=== PATIENT | male | born 1950 | race Caucasian/White ===

== ENCOUNTER → 2023-06-10 10:16 | Outpatient (REF) | payer MEDICARE, OTHER, SELFPAY ==
[2023-06-10 11:31] LABS: Urine Albumin Negative (Neg - Trace); Urine Bilirubin 1+ (Negative); Urine Character Clear (Clear); Urine Color Yellow; Urine Glucose Negative (Negative); Urine Ketone Trace (Negative); Urine Leukocyte Trace (Negative); Urine Nitrite Negative (Negative); Urine Occult Blood Negative (Negative); Urine Specific Gravity 1.015 (<1.030); Urine Urobilinogen 1+ (Neg - 1+)
[2023-06-10 11:49] LABS: Urine Red Blood Cell 0-2 /HPF (0-2)
[2023-06-10 11:50] LABS: Urine Mucus Few
[2023-06-10 11:51] LABS: Urine Squamous Cell 0-2 /LPF (Few)
[2023-06-10 12:33] LABS: ALT (SGPT) 22 U/L (0-50); AST (SGOT) 32 U/L (17-59); Albumin 4.4 g/dl (3.5-5.0); Alkaline Phosphatase 146 U/L (38-126); Blood Urea Nitrogen 24 mg/dl (9-20); Calcium 9.7 mg/dl (8.4-10.2); Carbon Dioxide 30 mmol/L (22-30); Chloride 100 mmol/L (98-107); Glucose 108 mg/dl (70-99); HDL Cholesterol 31 mg/dl; LDL Cholesterol, Calculated 93 mg/dl; Potassium 4.4 mmol/L (3.5-5.1); Sodium 140 mmol/L (135-145); Total Bilirubin 1.7 mg/dl (0.2-1.3); Total Cholesterol 151 mg/dl (50-199); Total Protein 7.6 g/dl (6.3-8.2); Triglyceride 138 mg/dl (10-149); Very Low Density Lipoprotein 27 mg/dl (0-30); eGFR > 60.00
[2023-06-10 12:53] LABS: % Basophils 0.6 % (0-2); % Eosinophils 6.8 % (0-6); % Immature Granulocytes 0.4 % (0-0.5); % Lymphocytes 18.7 % (20.5-51.1); % Monocytes 13.4 % (1.7-9.3); % Neutrophils 60.1 % (42.2-75.2); Absolute Eosinophils 0.5 10^3/uL (0-0.7); Absolute Lymphocytes 1.3 10^3/uL (1.2-3.4); Absolute Monocytes 0.9 10^3/uL (0.1-0.6); Absolute Neutrophils 4.1 10^3/uL (1.4-6.5); Hematocrit 40.3 % (39.0-52.0); Hemoglobin 13.7 g/dL (13.0-18.0); Mean Corpuscular Volume 88.4 fL (80.0-94.0); Mean Platelet Volume 9.6 fL (7.4-10.4); Nucleated Red Blood Cells % 0 % (-); Platelet Count 262 10^3/uL (130-400); Red Blood Cell Count 4.56 10^6/uL (4.70-6.10); White Blood Cell Count 6.8 10^3/uL (4.8-10.8)
[2023-06-10 13:16] LABS: Glycohemoglobin (HgbA1c) 6.3 % (4.0-5.6)
[2023-06-11 21:10] LABS: PSA Total 2.3 ng/mL (0.0-4.0)
== END ==
LOC: REG 10:16
PROVIDERS: ATTENDING PHYSICIAN Family Medicine
DX: F41.1 Generalized anxiety disorder (principal); I10 Essential (primary) hypertension; E78.2 Mixed hyperlipidemia; M1A.09X0 Idiopathic chronic gout, multiple sites, without tophus (tophi); R35.1 Nocturia; R73.03 Prediabetes; N40.1 Benign prostatic hyperplasia with lower urinary tract symptoms
CPT/HCPCS: 36415; 80053; 80061; 81003; 81015; 83036; 84153; 84154; 84443; 84550; 85025

== ENCOUNTER → 2023-12-20 09:32 | Outpatient (REF) | payer MEDICARE, OTHER, SELFPAY ==
[2023-12-20 11:28] LABS: % Basophils 0.5 % (0-2); % Eosinophils 3.8 % (0-6); % Immature Granulocytes 0.2 % (0-0.5); % Lymphocytes 16.2 % (20.5-51.1); % Monocytes 11.2 % (1.7-9.3); % Neutrophils 68.1 % (42.2-75.2); Absolute Eosinophils 0.2 10^3/uL (0-0.7); Absolute Monocytes 0.7 10^3/uL (0.1-0.6); Absolute Neutrophils 4.1 10^3/uL (1.4-6.5); Hematocrit 37.7 % (39.0-52.0); Mean Corp Hgb Conc. 34.5 g/dL (33.0-37.0); Mean Corpuscular Hgb 30.7 pg (27.0-31.0); Mean Corpuscular Volume 88.9 fL (80.0-94.0); Mean Platelet Volume 9.6 fL (7.4-10.4); Nucleated Red Blood Cells % 0 % (-); Platelet Count 235 10^3/uL (130-400); Red Blood Cell Count 4.24 10^6/uL (4.70-6.10); Red Cell Dist. Width 14.2 % (11.5-14.5)
[2023-12-20 11:47] LABS: ALT (SGPT) 28 U/L (0-50); AST (SGOT) 35 U/L (17-59); Albumin 4.4 g/dl (3.5-5.0); Alkaline Phosphatase 119 U/L (38-126); Blood Urea Nitrogen 17 mg/dl (9-20); Calcium 9.4 mg/dl (8.4-10.2); Carbon Dioxide 30 mmol/L (22-30); Chloride 99 mmol/L (98-107); Glucose 125 mg/dl (70-99); HDL Cholesterol 35 mg/dl; LDL Cholesterol, Calculated 93 mg/dl; Potassium 4.1 mmol/L (3.5-5.1); Sodium 142 mmol/L (135-145); Total Bilirubin 1.8 mg/dl (0.2-1.3); Total Cholesterol 151 mg/dl (50-199); Total Protein 7.2 g/dl (6.3-8.2); Triglyceride 118 mg/dl (10-149); Very Low Density Lipoprotein 23 mg/dl (0-30); eGFR > 60.00
[2023-12-20 11:57] LABS: Glycohemoglobin (HgbA1c) 5.8 % (4.0-5.6)
[2023-12-20 12:07] LABS: Uric Acid 6.5 mg/dl (3.5-8.5)
== END ==
LOC: REG 09:32
PROVIDERS: ATTENDING PHYSICIAN Family Medicine
DX: E78.2 Mixed hyperlipidemia (principal); Z85.72 Personal history of non-Hodgkin lymphomas; M1A.09X0 Idiopathic chronic gout, multiple sites, without tophus (tophi); R73.03 Prediabetes
CPT/HCPCS: 36415; 80053; 80061; 83036; 84550; 85025

== ENCOUNTER → 2024-01-17 10:49 | Outpatient (REF) | payer MEDICARE, OTHER, SELFPAY | LOC: RST 10:49 | PROVIDERS: ATTENDING PHYSICIAN Otolaryngology; FAMILY PHYSICIAN Family Medicine | DX: K21.9 Gastro-esophageal reflux disease without esophagitis (principal) | CPT/HCPCS: 74221 ==

== ENCOUNTER → 2024-07-17 08:11 | Outpatient (REF) | payer MEDICARE, OTHER, SELFPAY ==
[2024-07-17 09:12] LABS: % Basophils 0.7 % (0-2); % Eosinophils 2.3 % (0-6); % Immature Granulocytes 0.2 % (0-0.5); % Lymphocytes 21.5 % (20.5-51.1); % Neutrophils 63.3 % (42.2-75.2); Absolute Eosinophils 0.1 10^3/uL (0-0.7); Absolute Lymphocytes 1.2 10^3/uL (1.2-3.4); Absolute Monocytes 0.7 10^3/uL (0.1-0.6); Absolute Neutrophils 3.6 10^3/uL (1.4-6.5); Hematocrit 38.8 % (39.0-52.0); Hemoglobin 13.7 g/dL (13.0-18.0); Mean Corp Hgb Conc. 35.3 g/dL (33.0-37.0); Mean Corpuscular Hgb 33.3 pg (27.0-31.0); Mean Corpuscular Volume 94.2 fL (80.0-94.0); Mean Platelet Volume 9.9 fL (7.4-10.4); Nucleated Red Blood Cells % 0 % (-); Platelet Count 210 10^3/uL (130-400); Red Blood Cell Count 4.12 10^6/uL (4.70-6.10); Red Cell Dist. Width 14.8 % (11.5-14.5); White Blood Cell Count 5.7 10^3/uL (4.8-10.8)
[2024-07-17 09:18] LABS: Urine Albumin 1+ (Neg - Trace); Urine Bilirubin Negative (Negative); Urine Character Clear (Clear); Urine Color Yellow; Urine Glucose Negative (Negative); Urine Ketone Negative (Negative); Urine Leukocyte 1+ (Negative); Urine Nitrite Negative (Negative); Urine Occult Blood Negative (Negative); Urine Specific Gravity 1.015 (<1.030); Urine Urobilinogen Negative (Neg - 1+)
[2024-07-17 09:37] LABS: Glycohemoglobin (HgbA1c) 5.8 % (4.0-5.6)
[2024-07-17 09:38] LABS: Urine Squamous Cell 0-2 /LPF (Few)
[2024-07-17 09:40] LABS: Urine Amorphous Seen
[2024-07-17 09:41] LABS: Urine Red Blood Cell 0-2 /HPF (0-2)
[2024-07-17 09:43] LABS: Urine Mucus Moderate
[2024-07-17 09:44] LABS: ALT (SGPT) 25 U/L (0-50); AST (SGOT) 32 U/L (17-59); Albumin 4.3 g/dl (3.5-5.0); Alkaline Phosphatase 100 U/L (38-126); Blood Urea Nitrogen 20 mg/dl (9-20); Calcium 9.9 mg/dl (8.4-10.2); Carbon Dioxide 30 mmol/L (22-30); Chloride 102 mmol/L (98-107); Glucose 134 mg/dl (70-99); HDL Cholesterol 37 mg/dl; LDL Cholesterol, Calculated 100 mg/dl; Potassium 4.2 mmol/L (3.5-5.1); Sodium 142 mmol/L (135-145); Total Bilirubin 1.8 mg/dl (0.2-1.3); Total Cholesterol 160 mg/dl (50-199); Total Protein 7.2 g/dl (6.3-8.2); Triglyceride 118 mg/dl (10-149); Uric Acid 6.5 mg/dl (3.5-8.5); Very Low Density Lipoprotein 23 mg/dl (0-30); eGFR > 60.00
[2024-07-17 10:07] LABS: TSH Reflex To Free T4 3.45 uIU/ml (0.47-4.68)
[2024-07-18 17:02] LABS: PSA Total 1.8 ng/mL (0.0-4.0)
== END ==
LOC: REG 08:11
PROVIDERS: ATTENDING PHYSICIAN Family Medicine
DX: I10 Essential (primary) hypertension (principal); E78.2 Mixed hyperlipidemia; Z12.5 Encounter for screening for malignant neoplasm of prostate; R73.03 Prediabetes; K21.9 Gastro-esophageal reflux disease without esophagitis; N40.0 Benign prostatic hyperplasia without lower urinary tract symptoms
CPT/HCPCS: 36415; 80053; 80061; 81003; 81015; 83036; 84153; 84154; 84443; 84550; 85025

== ENCOUNTER → 2024-10-04 07:55 | Outpatient (REF) | payer MEDICARE, OTHER, SELFPAY ==
[2024-10-04 09:12] LABS: Urine Character Clear (Clear)
[2024-10-04 10:16] LABS: Hematocrit 38.7 % (39.0-52.0); Hemoglobin 13.2 g/dL (13.0-18.0); Mean Corp Hgb Conc. 34.1 g/dL (33.0-37.0); Mean Corpuscular Volume 91.3 fL (80.0-94.0); Nucleated Red Blood Cells % 0 % (-); Platelet Count 176 10^3/uL (130-400); Red Cell Dist. Width 13.8 % (11.5-14.5)
[2024-10-04 10:16] LABS: Urine Red Blood Cell 0-2 /HPF (0-2); Urine White Cell 0-2 /HPF (0-5)
[2024-10-04 11:01] LABS: Folate 15.3 ng/ml (2.76-20); Vitamin B12 871 pg/ml (239-931)
== END ==
LOC: REG 07:55
PROVIDERS: ATTENDING PHYSICIAN Family Medicine
DX: E53.8 Deficiency of other specified B group vitamins (principal); R82.90 Unspecified abnormal findings in urine; I10 Essential (primary) hypertension
CPT/HCPCS: 36415; 81003; 81015; 82607; 82746; 85025

== ENCOUNTER → 2024-11-17 12:25 | Outpatient (REF) | payer MEDICARE, OTHER, SELFPAY ==
[2024-11-17 14:55] LABS: Microalb - Urine Creatinine 49.200 mg/dl
[2024-11-17 15:08] LABS: Microalbumin, Random Urine < 0.6 mg/dl (0.6-1.7)
== END ==
LOC: REG 12:25
PROVIDERS: ATTENDING PHYSICIAN Family Medicine
DX: R80.8 Other proteinuria (principal)
CPT/HCPCS: 36415; 82043; 82570

== ENCOUNTER 2024-12-29 06:15 | Day surgery (SDC) | payer MEDICARE, OTHER, SELFPAY | END 2024-12-29 09:40 | LOC: GI 06:15 | PROVIDERS: ATTENDING PHYSICIAN Specialist | DX: R13.10 Dysphagia, unspecified (principal); K22.2 Esophageal obstruction; K44.9 Diaphragmatic hernia without obstruction or gangrene; K22.70 Barrett's esophagus without dysplasia | CPT/HCPCS: 43249; 43239; 88305 ==

== ENCOUNTER → 2025-01-24 10:28 | Outpatient (REF) | payer MEDICARE, OTHER, SELFPAY ==
[2025-01-24 11:29] LABS: Microalb - Urine Creatinine 75.200 mg/dl
[2025-01-24 11:35] LABS: Microalbumin, Random Urine 1.1 mg/dl (0.6-1.7)
[2025-01-24 12:08] LABS: Glycohemoglobin (HgbA1c) 5.6 % (4.0-5.9)
[2025-01-24 12:14] LABS: Hematocrit 42.7 % (39.0-52.0); Hemoglobin 14.2 g/dL (13.0-18.0); Mean Corp Hgb Conc. 33.3 g/dL (33.0-37.0); Mean Corpuscular Volume 94.7 fL (80.0-94.0); Nucleated Red Blood Cells % 0 % (-); Platelet Count 224 10^3/uL (130-400); Red Cell Dist. Width 14.5 % (11.5-14.5)
[2025-01-24 12:22] LABS: ALT (SGPT) 31 U/L (0-50); AST (SGOT) 31 U/L (17-59); Albumin 4.6 g/dl (3.5-5.0); Alkaline Phosphatase 113 U/L (38-126); Blood Urea Nitrogen 15 mg/dl (9-20); Calcium 9.5 mg/dl (8.4-10.2); Carbon Dioxide 31 mmol/L (22-30); Chloride 101 mmol/L (98-107); Glucose 125 mg/dl (70-99); HDL Cholesterol 39 mg/dl; Iron 90 ug/dl (49-181); LDL Cholesterol, Calculated 95 mg/dl; Potassium 3.9 mmol/L (3.5-5.1); Sodium 138 mmol/L (135-145); Total Protein 7.9 g/dl (6.3-8.2); Very Low Density Lipoprotein 26 mg/dl (0-30); eGFR > 60.00
[2025-01-24 12:31] LABS: Total Iron Binding Capacity 378 ug/dl (261-462)
[2025-01-24 12:53] LABS: Ferritin 63.2 ng/ml (17.9-464.0)
== END ==
LOC: REG 10:28
PROVIDERS: ATTENDING PHYSICIAN Family Medicine
DX: D64.9 Anemia, unspecified (principal); R80.8 Other proteinuria; Z85.72 Personal history of non-Hodgkin lymphomas; E78.5 Hyperlipidemia, unspecified; I10 Essential (primary) hypertension; R73.03 Prediabetes
CPT/HCPCS: 36415; 80053; 80061; 82043; 82570; 82728; 83036; 83540; 83550; 85025